=== PATIENT | female | born 1960 | race Caucasian/White ===

== ENCOUNTER 2016-06-26 06:16 | Emergency (ER) | payer OTHER ==
[~2016-06-26] VITALS: Ht 162.6 cm; Wt 94.5 kg
[2016-06-26 06:19] VITALS: TEMP 36.4; Ht 162.6 cm; Wt 94.5 kg
[2016-06-26 06:24] VITALS: O2SAT 96
--- NOTE | 2016-06-26 06:40 | EMERGENCY ROOM VISIT NOTE ---
ED Visit Note First contact with patient: 06:37 Patient evaluated with resident.
[2016-06-26] MEDS ORDERED: ALUMINUM/MAGNESIUM SUSP 30 ML UDC PO STA (06:48)
[2016-06-26] MEDS ORDERED: ACETAMINOPHEN 500 MG TAB PO STA (06:48)
[2016-06-26] MEDS ORDERED: FAMOTIDINE IV INJ 20 MG in DEXTROSE 5% 100ML 100 ML IV SCH (07:00)
[2016-06-26] MEDS ORDERED: LIDOCAINE HCL 2% VISC SOLN 20 ML UDC MT ONE (07:00)
--- NOTE | 2016-06-26 07:03 | EMERGENCY ROOM VISIT NOTE ---
History Report prepared by Mert: Lona Garcia Under the Supervision of: Dr. Azeem Molina M.D. First contact with patient: 06:37 Chief Complaint: CARDIAC ASSESSMENT Stated Complaint: CARDIAC ASSESSMENT Nursing Triage Summary: Patient presents ALS for evaluation of epigastric pain that began this morning around 0500 while waiting to board an airplane. Associated diaphoresis and SOB. History of Present Illness The patient is a 55 year old female who presents to the Emergency Room with complaints of constant epigastric abdominal pain that started around 0500 this morning. The patient came to the ED via ambulance. She thinks that they gave her aspirin en route. She describes the pain as pressure. The patient states that the pain started when she got to the airport this morning. After the pain started, she experienced about 10 minutes of diaphoresis along with some shortness of breath. She was supposed to be travelling for work, but she did not want to board the plane while she had the pain. The patient states that other than the pain today, she has been well recently. She denies experiencing any dyspnea on exertion recently. The patient states that she is a former smoker , but then reports that she smoked two cigarettes yesterday. She has a history of GERD and she is on 10 mg of Nexium daily for it. She states that the pain is different than the pain that she typically experiences with GERD because this pain was not relieved with Nexium. She reports that whenever she experiences epigastric pain from GERD, it is relieved in about 20 minutes with Nexium. The patient states that she has been traveling a lot for work recently. She adds that she just got back from [place]. The patient's most recent endoscopy was several years ago. She has a history of a cholecystectomy. The patient denies any family history of cardiac problems. Source of History: patient Onset: 0500 this morning Position: abdomen (epigastric) Quality: pressure Timing: constant Associated Symptoms: + SOB, + diaphoresis Review of Systems See HPI for pertinent positives & negatives. A total of 10 systems reviewed and were otherwise negative. Past Medical & Surgical Medical Problems: (1) GERD (gastroesophageal reflux disease) Surgical Problems: (1) History of cholecystectomy Family History No pertinent family history Social History Smoking Status: Never Smoker Marital Status: Housing Status: lives with family Occupation Status: employed Current/Historical Medications Scheduled Cholecalciferol (Vitamin D3), 1 TAB PO DAILY Lansoprazole (Prevacid), 30 MG PO DAILY Miscellaneous Medications Biotin (Biotin) Ferrous Fumarate (Iron) Multiple Vitamins W/ Minerals (Hair Skin and Nails Formu) Vitamins C & E (Vitamin C) Allergies Uncoded Allergies: NO KNOWN ALLERGIES (Allergy, Unknown, ., 06/26/16) Physical Exam Vital Signs Date Time Temp Pulse Resp B/P Pulse Ox O2 Delivery O2 Flow Rate FiO2 06/26/16 10:03 68 18 126/83 99 06/26/16 08:40 68 16 124/88 97 Room Air 06/26/16 07:05 70 16 127/87 97 Room Air 06/26/16 06:25 70 06/26/16 06:24 96 Room Air 06/26/16 06:19 36.4 73 16 125/64 96 Room Air 06/26/16 06:19 Room Air Physical Exam CONSTITUTIONAL: Patient is in mild distress. HEENT: No icterus, moist mucous membranes NECK: No meningismus, trachea is midline. CARDIOVASCULAR: Regular rate, normal perfusion RESPIRATORY: Unlabored breathing. Clear to auscultation. GASTROINTESTINAL: Mild epigastric discomfort particularly along the lower sternal border. GENITOURINARY: No flank tenderness MUSCULOSKELETAL: Full range of motion NEUROLOGIC: No acute gross focal deficits. PSYCHIATRIC: Normal affect SKIN: Normal for ethnicity. Medical Decision & Procedures ER Provider Diagnostic Interpretation: X-ray results as stated below per interpretation by me and the radiologist. CHEST ONE VIEW PORTABLE IMPRESSION: No acute cardiopulmonary findings. Electronically signed by: Justice Parks M.D. 06/26/2016 7:27 AM Dictated Date/Time: 06/26/2016 7:27 AM Laboratory Results 06/26/16 06:05 Red Blood Count 4.76, Mean Corpuscular Volume 87.0, Mean Corpuscular Hemoglobin 30.3, Mean Corpuscular Hemoglobin Concent 34.8, Mean Platelet Volume 11.6, Neutrophils (%) (Auto) 76.5, Lymphocytes (%) (Auto) 15.4, Monocytes (%) (Auto) 6.4, Eosinophils (%) (Auto) 1.3, Basophils (%) (Auto) 0.1, Neutrophils # (Auto) 11.16, Lymphocytes # (Auto) 2.24, Monocytes # (Auto) 0.94, Eosinophils # (Auto) 0.19, Basophils # (Auto) 0.02 06/26/16 06:05 Test 06/26/16 06:05 06/26/16 08:48 White Blood Count 14.59 K/uL (4.8-10.8) Red Blood Count 4.76 M/uL (4.2-5.4) Hemoglobin 14.4 g/dL (12.0-16.0) Hematocrit 41.4 % (37-47) Mean Corpuscular Volume 87.0 fL (80-100) Mean Corpuscular Hemoglobin 30.3 pg (25-34) Mean Corpuscular Hemoglobin Concent 34.8 g/dl (32-36) Platelet Count 202 K/uL (130-400) Mean Platelet Volume 11.6 fL (7.4-10.4) Neutrophils (%) (Auto) 76.5 % Lymphocytes (%) (Auto) 15.4 % Monocytes (%) (Auto) 6.4 % Eosinophils (%) (Auto) 1.3 % Basophils (%) (Auto) 0.1 % Neutrophils # (Auto) 11.16 K/uL (1.4-6.5) Lymphocytes # (Auto) 2.24 K/uL (1.2-3.4) Monocytes # (Auto) 0.94 K/uL (0.11-0.59) Eosinophils # (Auto) 0.19 K/uL (0-0.5) Basophils # (Auto) 0.02 K/uL (0-0.2) RDW Standard Deviation 41.3 fL (36.4-46.3) RDW Coefficient of Variation 12.8 % (11.5-14.5) Immature Granulocyte % (Auto) 0.3 % Immature Granulocyte # (Auto) 0.04 K/uL (0.00-0.02) Prothrombin Time 10.8 SECONDS (9.0-12.0) Prothromb Time International Ratio 1.0 (0.9-1.1) Activated Partial Thromboplast Time 23.8 SECONDS (21.0-31.0) Partial Thromboplastin Ratio 0.9 Anion Gap 12.0 mmol/L (3-11) Est Creatinine Clear Calc Drug Dose 87.5 ml/min Estimated GFR () 94.0 Estimated GFR (Non- 81.1 BUN/Creatinine Ratio 19.5 (10-20) Calcium Level 9.3 mg/dl (8.5-10.1) Total Bilirubin 0.6 mg/dl (0.2-1) Direct Bilirubin mg/dl (0-0.2) Aspartate Amino Transf (AST/SGOT) 139 U/L (15-37) Alanine Aminotransferase (ALT/SGPT) 80 U/L (12-78) Alkaline Phosphatase 141 U/L (45-117) Total Protein 7.4 gm/dl (6.4-8.2) Albumin 3.8 gm/dl (3.4-5.0) Globulin 3.6 gm/dl (2.5-4.0) Albumin/Globulin Ratio 1.1 (0.9-2) Lipase 271 U/L (73-393) Chemistry Specimen Hemolysis Troponin I < 0.015 ng/ml (0-0.045) Labs reviewed by ED physician. Medications Administered Medications (Trade) Dose Ordered Sig/Sabrina Route Start Time Stop Time Status Last Admin Dose Admin Al Hydroxide/Mg Hydroxide (Maalox Susp) 30 ml NOW STAT PO 06/26/16 06:48 06/26/16 06:54 DC 06/26/16 07:04 30 ML Lidocaine HCl (Viscous Lidocaine 2% Soln) 20 ml NOW ONCE MT 06/26/16 07:00 06/26/16 07:01 DC 06/26/16 07:03 20 ML Acetaminophen (Tylenol Tab) 1,000 mg NOW STAT PO 06/26/16 06:48 06/26/16 06:54 DC 06/26/16 07:03 1,000 MG ECG Indication: abdominal pain, SOB/dyspnea Rate (beats per minute): 69 Rhythm: sinus rhythm Findings: nonspecific-ST abn, no ectopy, other (normal axis) ED Course 0643: Past medical records reviewed. The patient was evaluated in room B9. A complete history and physical examination was performed. 0648: Ordered Tylenol Tab 1000 mg PO, Maalox Susp 30 ml PO 0700: Ordered Famotidine 20 mg/Dextrose 102 ml @ 200 mls/hr IV, Lidocaine HCl 20 ml MT 0942: Upon reexamination the patient is doing better. I recommend a CT scan, but she refused. I discussed results and treatment plan with the patient. She verbalizes agreement and understanding. The patient is ready for discharge. Medical Decision Differential diagnoses include but are not limited to; coronary artery disease, pancreatitis, GERD. 55-year-old with history of GERD and gastric sleeve presents to the emergency room for evaluation of epigastric discomfort and diaphoresis for a few minutes. She takes Nexium regularly although has not had any recent endoscopies. She denies any exertional nor pleuritic components and has been in her otherwise normal state of health. EKG and 2 troponins within normal limits without any delta change. Chest x-ray unremarkable. She was noted to have a mild leukocytosis. On reexamination at 9:45 AM patient appears quite well would like to leave. She understands that while her serial troponins are normal and is unlikely she has had a heart attack I cannot fully reassure her that she does not have a serious disease today, such as CAD. She except these risks and would like to leave as she has a work engagement and needs to catch an airplane in a few hours. She was provided copies of the lab work and imaging as well as the EKG and understands to follow-up with her doctor. Impression Primary Impression: Epigastric abdominal pain Scribe Attestation The scribe's documentation has been prepared under my direction and personally reviewed by me in its entirety. I confirm that the note above accurately reflects all work, treatment, procedures, and medical decision making performed by me. Departure Information Dispostion Home / Self-Care Forms IMPORTANT VISIT INFORMATION Patient Instructions ED Epigastric Pain Kimberly HULL [facility]
[2016-06-26 07:16] LABS: BASO % 0.1 %; BASO ABS # 0.02 K/uL (0-0.2); COMPLETE YES; EOS % 1.3 %; HEMATOCRIT 41.4 % (37-47); IG% 0.3 %; LYMPH % 15.4 %; LYMPH ABS # 2.24 K/uL (1.2-3.4); MEAN CORPUSCULAR HEMOGLOBIN 30.3 pg (25-34); MEAN CORPUSCULAR HGB CONC 34.8 g/dl (32-36); MEAN PLATELET VOLUME 11.6 fL (7.4-10.4); MONO % 6.4 %; NEUT % 76.5 %; PLATELET COUNT 202 K/uL (130-400); RED BLOOD COUNT 4.76 M/uL (4.2-5.4); WHITE BLOOD COUNT 14.59 K/uL (4.8-10.8)
[2016-06-26 07:23] LABS: PARTIAL THROMBOPLASTIN RATIO 0.9; PROTHROMBIN TIME (PATIENT) 10.8 SECONDS (9.0-12.0)
--- NOTE | 2016-06-26 07:29 | DIAGNOSTIC IMAGING REPORT ---
CHEST ONE VIEW PORTABLE CLINICAL HISTORY: Epigastric pain. COMPARISON STUDY: No previous studies for comparison. FINDINGS: There is no lucency under the hemidiaphragms to suggest pneumoperitoneum. Linear left basilar opacity is suggestive of atelectasis or scarring. There is no consolidation. Cardiac size is normal. Mediastinal contours are normal. IMPRESSION: No acute cardiopulmonary findings. Electronically signed by: Justice Parks M.D. 06/26/2016 7:27 AM Dictated Date/Time: 06/26/2016 7:27 AM
[2016-06-26 07:34] LABS: ALB/GLOB RATIO 1.1 (0.9-2); ALKALINE PHOSPHATASE 141 U/L (45-117); ALT/SGPT 80 U/L (12-78); AST/SGOT 139 U/L (15-37); BLOOD UREA NITROGEN 16 mg/dl (7-18); BUN/CREATININE RATIO 19.5 (10-20); CALCIUM 9.3 mg/dl (8.5-10.1); CARBON DIOXIDE 23 mmol/L (21-32); CHLORIDE 108 mmol/L (98-107); CREATININE 0.82 mg/dl (0.60-1.20); GLUCOSE 123 mg/dl (70-99); POTASSIUM 3.7 mmol/L (3.5-5.1); SODIUM 143 mmol/L (136-145)
[2016-06-26] MEDS ORDERED: MULT-1018 (08:05)
[2016-06-26] MEDS ORDERED: LANS30CA12 PO (08:05)
[2016-06-26] MEDS ORDERED: CHOL1000 PO (08:05)
[2016-06-26] MEDS ORDERED: VITACAP26 (08:05)
[2016-06-26] MEDS ORDERED: FERR18TA2 (08:05)
[2016-06-26] MEDS ORDERED: BIOT1CAP8 (08:05)
[2016-06-26] MEDS ORDERED: OPTIRAY 320 IV PRN (09:45)
[2016-06-26 10:03] VITALS: BP 126/83; PULSE 68; O2SAT 99
== END 2016-06-26 10:04 | disposition home or self-care (01) ==
LOC: C.EDB 06:20
DX: R10.13 Epigastric pain (principal); K21.9 Gastro-esophageal reflux disease without esophagitis; Z98.84 Bariatric surgery status; Z79.899 Other long term (current) drug therapy